=== PATIENT | female | born 1955 ===

== ENCOUNTER 2025-02-13 08:58 | Outpatient (CLI) | payer OTHER | END 2025-02-13 17:00 | disposition home or self-care (01) | LOC: Rad HDHVI 08:58 | PROVIDERS: ATTEND Internal Medicine Cardiovascular Disease | DX: Z01.810 Encounter for preprocedural cardiovascular examination (principal); I07.1 Rheumatic tricuspid insufficiency | CPT/HCPCS: 93306 ==

== ENCOUNTER 2025-02-20 09:13 | Outpatient (CLI) | payer OTHER ==
[~2025-02-20] VITALS: Ht 154.9 cm; Wt 95.7 kg
[2025-02-20] MEDS ORDERED: ADENOSINE 90 MG/30 ML INJ IV ONE (09:44)
[2025-02-20] MEDS ORDERED: ADENOSINE 80 MG in GIVE UN-DILUTED 0 ML IV ONE (13:45)
== END 2025-02-20 17:00 | disposition home or self-care (01) ==
LOC: Rad HDHVI 09:13
PROVIDERS: ATTEND Internal Medicine Cardiovascular Disease
DX: Z01.810 Encounter for preprocedural cardiovascular examination (principal); I10 Essential (primary) hypertension; R00.1 Bradycardia, unspecified; E78.00 Pure hypercholesterolemia, unspecified; Z82.49 Family history of ischemic heart disease and other diseases of the circulatory system
CPT/HCPCS: 78452; 93017; A9500; J0153